=== PATIENT | female | born 1975 | race Caucasian/White ===

== ENCOUNTER 2022-11-02 14:17 | Emergency (ER) | payer SELFPAY ==
--- NOTE | 2022-11-02 14:28 | ED.FEMALEGU ---
HPI - Female Genitourinary General Chief complaint: Urogenital-Female Stated complaint: Female Urogenital Time Seen by Provider: 11/02/22 14:29 Source: patient Mode of arrival: ambulatory Limitations: no limitations History of Present Illness HPI Narrative: Deidre is a 47-year-old female patient presenting to the clinic today with complaints of urinary urgency, frequency, and dysuria since Friday night. She reports no fever or chills. Last menstrual period was October 17. She denies any vaginal discharge. Denies any concern for any STIs. Denies any history of cystocele or bladder surgery. Denies any abdominal pain or back pain. Related Data Home Medications Medication Instructions Recorded Confirmed escitalopram oxalate 10 mg tablet 10 mg PO DAILY 11/02/22 11/02/22 (Lexapro) Allergies Allergy/AdvReac Type Severity Reaction Status Date / Time No Known Allergies Allergy Unknown Verified 11/02/22 14:21 Review of Systems Review of Systems: Pertinent positives per HPI. Patient denies any fever, chills, rash, headache, visual changes, dizziness, cough, shortness of breath, chest pain, palpitations, nausea, vomiting, diarrhea, constipation PMFSH Comments At the time of my signature, I reviewed and agree with the nursing past medical, surgical, social, and family history. There is no relevant family history pertinent to the patient complaint. Exam Narrative: General: Well-developed, well nourished, in no apparent distress. Head: Normocephalic, atraumatic. Cardio: Regular rate and rhythm, s1 and s2 normal, no murmur appreciated. Resp: Clear to auscultation bilaterally, no rhonchi, rales, wheezing or rubs. Abdomen: Soft, pliable, bowel sounds present in all quadrants, mild tender to palpation over the suprapubic bladder, no adnexa tenderness, no organomegly, no CVAT tenderness. Course Course Emergency Course: Portions of this record may have been created with voice recognition software. Level of Care: Express Care Visit Vital Signs Vital signs: Vital signs reviewed MDM - Female Genitourinary MDM Narrative Medical decision making narrative: At the time of visit patient is resting comfortably on the exam table. Urinalysis is negative for any sign of infection or blood. I suspect the patient may have cystitis. Will send in prescription for some Pyridium and have her follow-up with her PCP in 1 week if symptoms persist supportive measures were discussed with the patient she voiced understanding of discharge instructions and agrees to treatment plan. Differential Diagnosis Differential diagnosis: Likely urinary tract infection, bacterial vaginosis, vaginitis, cystitis and other (Interstitial cystitis, overactive bladder syndrome, cystocele) Discharge Plan Discharge Clinical Impression: Cystitis Patient Disposition: Home, Self-Care Condition: Stable Instructions: Antibiotic Form, Dysuria (ED), Urinary Urgency and Frequency (DC) Additional Instructions: Urinalysis is negative for any sign of infection or blood in the clinic today Increase your fluids and stay well hydrated Avoid caffeine intake to see if this helps alleviate her symptoms May take Pyridium as prescribed to alleviate symptoms Follow-up with your PCP in 1 week if symptoms persist or sooner if they worsen Prescriptions: New phenazopyridine [Pyridium] 200 mg tablet 200 mg PO TID PRN (Reason: pain) Qty: 6 0RF No Action escitalopram oxalate [Lexapro] 10 mg Tablet 10 mg PO DAILY Follow-up/Referrals: Lorin Wisdom [Other] Time of Disposition: 14:43 Quality NIHSS Nursing Documentation ED NIHSS nursing documentation: reviewed/agree
[2022-11-02 14:29] VITALS: BP 115/77; PULSE 77; RESP 16; TEMP 36.4; O2SAT 100
== END 2022-11-02 14:44 | disposition home or self-care (01) ==
PROVIDERS: Emergency Provider Nurse Practitioner Family
DX: N30.90 Cystitis, unspecified without hematuria (principal); F41.9 Anxiety disorder, unspecified
CPT/HCPCS: 81003; 99213; G0463